=== PATIENT | male | born 1955 | race Caucasian/White ===

== ENCOUNTER → 2017-06-24 | Day surgery (SDC) | payer BC ==
[~2017-06-24] VITALS: Ht 185.4 cm; Wt 119.7 kg
[~2017-06-24] MED LIST: ADVAIR 250-501 EACH INH; ATORVASTATIN CA40 MG PO; COLACE100 MG PO; FLOMAX0.4 MG PO; LEVOTHROID(SY175 MCG PO; MYRBETRIQ50 MG PO; NORCO 5-325 TA1 EACH PO; PROTONIX40 MG PO
--- NOTE | ~2017-06-24 | OR ---
PATIENT'S NAME: MERCEDES BRADY [facility] AGE: 62 Y [address] ROOM: [place] [address] [place] [facility] [place]: 06[place]24/[place] OR/Procedure Report DISCHARGE DATE: FAMILY PHYSICIAN: Angy Campbell MD ATTENDING PHYSICIAN: CUCA VARGHESE SURGEON: Cuca Varghese MD FISH SMOKER: None. DATE OF PROCEDURE: 06/24/2017 PREOPERATIVE DIAGNOSES: 1. Benign prostatic hypertrophy with bladder outlet obstruction. 2. Lower urinary tract symptoms including incomplete bladder emptying, frequency, intermittency, urgency, urge incontinence, weak stream, straining to void, nocturia, and postvoid dribbling. 3. Bulbar urethral stricture. POSTOPERATIVE DIAGNOSES: 1. Benign prostatic hypertrophy with bladder outlet obstruction. 2. Lower urinary tract symptoms including incomplete bladder emptying, frequency, intermittency, urgency, urge incontinence, weak stream, straining to void, nocturia, and postvoid dribbling. 3. Bulbar urethral stricture. OPERATIVE PROCEDURES: 1. Cystoscopy with urethral dilation. 2. Cystoscopy with UroLift procedure (prostatic urethral lift). INDICATIONS FOR PROCEDURE: The patient is a pleasant 62-year-old male with history of BPH with lower urinary tract symptoms, which have been refractory to pharmacologic management. He underwent initial cystoscopy yesterday with findings including an area of urethral stenosis and his bulbar urethra consistent with possible urethral stricture, which was passable with the flexible cystoscope. He was noted to have a significant bladder outlet obstruction with ezbauxuz-gd-wppaes bilobar hyperplasia of the prostate. He had opted to proceed with UroLift procedure, which was initially attempted in clinic yesterday, but we were unable to advance the rigid cystoscope past the area of urethral stricture. The patient was explained the risks, benefits, indications, and alternatives to the above procedure and wished to proceed and consented freely. ANESTHESIA ADMINISTERED: Monitored anesthesia care. DESCRIPTION OF OPERATION: The patient was brought back to the operating room where he was placed on the OR table in the supine position. A surgical time- out was called where patient identification, surgical site, and procedure was PATIENT'S NAME: MERCEDES BRADY [facility] AGE: 62 Y [address] ROOM: [place] [address] [place] [facility] [place]: 06/24/2017 OR/Procedure Report DISCHARGE DATE: FAMILY PHYSICIAN: Angy Campbell MD ATTENDING PHYSICIAN: CUCA VARGHESE then verified. We also did verify that the patient received an IV Levaquin antibiotic within an hour of beginning the procedure. After undergoing successful administration of monitored anesthesia care, the patient was then moved and placed in a low lithotomy position where his genital area was then prepped and draped in the usual sterile fashion. I began by advancing the rigid cystoscope into the patient's urethra. I again attempted to advance the area at his bulbar urethra and this area of stenosis was still tight and would not accommodate the rigid cystoscope. Of note, this area was located just, which appeared to be distal to his urethral sphincter and his bulbar urethra. This did not have the typical appearance of a urethral stricture as the tissues appeared quite healthy and it almost appeared like a thick band with surrounding that area of urethra. Regardless, this area would not accommodate the rigid cystoscope and I opted to perform urethral dilation. I did advance an Amplatz superstiff guidewire through the area of stricture and up into his bladder. Then, over the wire, I performed sequential urethral dilation starting with a 16-Turkish S curve urethral dilator. I then sequentially dilated up to 22-Turkish in caliber. I then was able to carefully and easily advance the 20-Turkish rigid cystoscope with long bridge and 0-degree lens per urethra. The rest of his posterior urethra was notable for njyzqeys-nb-yafwmb bilobar hyperplasia of the prostate. His bladder was negative for any bladder tumors, cellules, or diverticula. He did have some qxug-fj-ufcxqonh bladder trabeculation noted throughout. His ureteral orifices were noted to be in their orthotopic location. The cystoscope bridge was then replaced with the UroLift implant delivery device. The first treatment site was the patient's right side approximately 1.5 cm distal to the bladder neck. The distal tip of the delivery device was then angled laterally approximately 20 degrees at this position to compress the lateral lobe. The trigger was pulled thereby deploying a needle containing the implant through the prostate. The needle was then retracted, allowing one end of the implant to be delivered to the capsular surface of the prostate. The implant was then tensioned to assure capsular seating and removal of slack monofilament. The device was then angled back toward midline and slowly advanced proximally until verification with cystoscopy of the monofilament being centered in the delivery bay. With the final triggering, the urethral end piece was then affixed to the monofilament thereby tailoring the size and tension of the implant. Excess filament was severed with this maneuver. The device was then readvanced into the bladder. The opening effect from the implant placement was confirmed with cystoscopy. The above identical sequence was then repeated on the patient's left side. I then reinspected for successful placement of each implant as well as degree of lateral lobe obstruction remaining. Two additional implants were delivered just proximal to the verumontanum in the same fashion, again one on the patient's right side and one on the left side. There was still some persistent obstruction noted at the mid prostate, which required placement of 2 additional implants bilaterally. A total of 6 implants were delivered successfully. A final cystoscopy was then performed to inspect the PATIENT'S NAME: MERCEDES BRADY [facility] AGE: 62 Y [address] ROOM: [place], [place] [address] [place] [facility] [place]: 06/24/2017 OR/Procedure Report DISCHARGE DATE: FAMILY PHYSICIAN: Angy Campbell MD ATTENDING PHYSICIAN: CUCA VARGHESE location and state of each implant to assure proper seating and location. Final inspection also revealed a patent prostatic urethra with irrigation flow turned off. He did have some mild mucosal oozing from his bladder neck and I then used the Bugbee electrocautery to carefully fulgurate this pinpoint area along his bladder neck. I then reinspected for hemostasis again, which was excellent. I did leave approximately 200 mL of irrigation fluid in his bladder to assist the patient with his voiding trial. I then removed the cystoscope. The patient was then taken out of the lithotomy position. He did tolerate the procedure very well. He was then transferred over to the recovery bed after being woken from monitored anesthesia care and transferred back to the recovery room in good condition. COMPLICATIONS: None. DRAINS: None. ESTIMATED BLOOD LOSS: Minimal. FOLLOWUP PLAN: We will plan to have the patient undergo a trial of void today in the recovery room prior to discharge home. If he passes his trial of void, we will plan to see him back in Urology Clinic at my outreach clinic in [place] in June. MD JULIO C TONEY/surjit /[id number] CC: Angy Campbell MD d: 06/25/17 0121 t: 06/26/17 0941, OPERATIVE SUMMARY
[2017-06-24 08:52] LABS: BASOPHIL # 0.1 K/uL (0.0-0.2); BASOPHIL % 0.6 %; EOSINOPHIL # 0.3 K/uL (0.0-0.5); EOSINOPHIL % 3.6 %; HEMATOCRIT 44.1 % (37.0-53.0); IMMATURE GRANULOCYTE % 0.4 %; LYMPHOCYTE # 1.7 K/uL (0.8-4.0); LYMPHOCYTE % 20.7 %; MCH 29.6 pg (27.0-34.0); MONOCYTE # 0.6 K/uL (0.0-1.0); MONOCYTE % 6.9 %; MPV 11.2 fl (9.4-12.4); NEUTROPHIL # (ANC) 5.6 K/uL (1.4-9.0); NEUTROPHIL % 67.8 %; NRBC % 0 /100WBC (0-0.00); PLATELET COUNT 208 K/uL (150-450); RBC 5.07 M/uL (3.50-5.50); RDW-CV 13.6 % (11.9-14.6); WBC 8.3 K/uL (4.0-11.0)
[2017-06-24 09:13] LABS: ALBUMIN 3.6 gm/dL (3.5-5.0); ANION GAP 11.7 (10.0-19.0); CALCIUM 8.6 mg/dL (8.5-10.5); CREATININE 1.1 mg/dL (0.6-1.3); POTASSIUM 3.7 mMol/L (3.7-5.1); TOTAL BILIRUBIN 0.4 mg/dL (0.0-1.5); TOTAL PROTEIN 6.9 g/dL (6.0-8.4)
== END ==
LOC: GPOC 06-23 15:00 → GSDC 08:15 → GPOC 15:00
PROVIDERS: Urology
PROC: 0T7D8ZZ Dilation of Urethra, Via Natural or Artificial Opening Endoscopic (ICD-10-PCS; principal; 2017-06-24)
PROC: 0T7D8DZ Dilation of Urethra with Intraluminal Device, Via Natural or Artificial Opening Endoscopic (ICD-10-PCS; 2017-06-24)
DX: N40.1 Benign prostatic hyperplasia with lower urinary tract symptoms (principal); N13.8 Other obstructive and reflux uropathy; R39.14 Feeling of incomplete bladder emptying; N35.8 Other urethral stricture; E78.00 Pure hypercholesterolemia, unspecified; E03.9 Hypothyroidism, unspecified; J45.909 Unspecified asthma, uncomplicated; K21.9 Gastro-esophageal reflux disease without esophagitis; Z90.49 Acquired absence of other specified parts of digestive tract; Z79.899 Other long term (current) drug therapy; Z88.0 Allergy status to penicillin
CPT/HCPCS: J1956; J2001; J7120; L8699